=== PATIENT | female | born 1950 | race Caucasian/White ===

== ENCOUNTER 2019-01-30 15:25 | Emergency (ER) | payer OTHER ==
[~2019-01-30] VITALS: Ht 162.6 cm; Wt 80.7 kg
[~2019-01-30 15:25] MED LIST: ACT30 PO; AMLODIPINE BES10 MG PO; CARVEDILOL12.5 M1 PO; DEMECLOCYCLINE150 MG PO; HI-CAL1000 ML PO; HYDROCHLOROTHIA25 MG PO; LIPI20 PO; LISINOPRIL40 MG PO; MAC100 PO; METFORMIN HCL1000 MG PO
[2019-01-30 15:41] VITALS: Ht 162.6 cm; Wt 80.7 kg
[2019-01-30 17:04] VITALS: BP 120/76
== END 2019-01-30 17:04 | disposition home or self-care (01) ==
LOC: ED 15:25
DX: G89.29 Other chronic pain (principal); M54.9 Dorsalgia, unspecified; I50.9 Heart failure, unspecified; I11.0 Hypertensive heart disease with heart failure; E11.9 Type 2 diabetes mellitus without complications; E78.00 Pure hypercholesterolemia, unspecified; Z98.890 Other specified postprocedural states
CPT/HCPCS: 82962; J2270